=== PATIENT | female | born 1935 | race Caucasian/White ===

== ENCOUNTER 2016-10-28 14:36 | Emergency (ER) | payer MEDICARE ==
[2016-10-28 15:34] VITALS: BP 140/88
--- NOTE | 2016-11-21 17:02 | UC ---
Lower Extremity/Ankle HPI - HPI Summary HPI Summary: Patient was walking for an extended period of time yesterday developed pain inthe arch of her right foot. - History of Current Complaint Chief Complaint: UCLowerExtremity Stated Complaint: LEFT FOOT PAIN Time Seen by Provider: 10/28/16 15:58 Hx Obtained From: Patient Hx Last Menstrual Period: n/a ?: No Onset/Duration: Sudden Onset, Lasting Days Severity Initially: Mild Severity Currently: Moderate Pain Intensity: 4 Pain Scale Used: 0-10 Numeric Aggravating Factor(s): Standing, Ambulation Alleviating Factor(s): Nothing Able to Bear Weight: Yes - Risk Factors Gout Risk Factors: Negative DVT Risk Factors: Negative - Allergies/Home Medications Allergies/Adverse Reactions: Allergies Allergy/AdvReac Type Severity Reaction Status Date / Time Bee Venom Allergy Swelling Verified 10/28/16 15:21 Of Face,Lips,& Throat Penicillins Allergy Rash Verified 10/28/16 15:21 Sulfa Antibiotics Allergy Rash Verified 10/28/16 15:21 Home Medications: Home Medications Escitalopram (NF) [Lexapro (NF)] 5 mg PO DAILY 10/28/16 [History Confirmed 10/28] Ranitidine HCl [Zantac] 150 mg PO SEE INSTRUCTIONS PRN 10/28/16 [History Confirmed 10/28/16] Warfarin TAB(*) [Coumadin TAB(*)] 2.5 mg PO 1700 10/28/16 [History Confirmed ] PMH/Surg Hx/FS Hx/Imm Hx Previously Healthy: Yes Endocrine History Of: Reports: Diabetes - Taken off of meds, Thyroid Disease Cardiovascular History Of: Reports: Hypertension - Taken off of meds - Surgical History Surgical History: Yes Surgery Procedure, Year, and Place: PART OF COLON REMOVED 07/2011, HYSTERECTOMY. Colon resection with loop ileostomy 10/2014 - Family History Known Family History: Positive: Cardiac Disease, Hypertension, Diabetes - Social History Alcohol Use: None Substance Use Type: None Smoking Status (MU): Never Smoked Tobacco Review of Systems Constitutional: Negative Skin: Negative Eyes: Negative ENT: Negative Respiratory: Negative Cardiovascular: Negative Gastrointestinal: Negative Genitourinary: Negative Motor: Negative Neurovascular: Negative Musculoskeletal: Arthralgia, Decreased ROM, Myalgia Neurological: Negative Psychological: Negative All Other Systems Reviewed And Are Negative: Yes Physical Exam Triage Information Reviewed: Yes Appearance: Well-Appearing, Well-Nourished, Pain Distress Vital Signs: Initial Vital Signs Temp 98.6 F 10/28/16 15:13 Pulse 79 10/28/16 15:13 Resp 16 10/28/16 15:13 BP 140/88 10/28/16 15:13 Pulse Ox 99 10/28/16 15:13 Vital Signs Reviewed: Yes Eye Exam: Normal Eyes: Positive: Conjunctiva Clear ENT Exam: Normal ENT: Positive: Normal ENT inspection, Hearing grossly normal, Pharynx normal, TMs normal Dental Exam: Normal Neck exam: Normal Respiratory Exam: Normal Respiratory: Positive: Chest non-tender, Lungs clear, Normal breath sounds Cardiovascular Exam: Normal Cardiovascular: Positive: RRR, No Murmur, Pulses Normal, Brisk Capillary Refill Abdominal Exam: Normal Abdomen Description: Positive: Nontender, No Organomegaly, Soft Bowel Sounds: Positive: Present Musculoskeletal: Positive: Strength Intact, ROM Limited @ - pronation, Edema @ - in the arch of foot Neurological Exam: Normal Neurological: Positive: Alert, Muscle Tone Normal Psychological Exam: Normal Psychological: Positive: Age Appropriate Behavior Skin Exam: Normal Lower Extremity Course/Dx - Course Course Of Treatment: hx obtained, exam performed, ROm assessed, arches examinted , her arch is fallen, examine her shoes which she states are 5 years old, worn and no support, encouraged her to get new pair of shoes. - Differential Dx/Diagnosis Differential Diagnosis/HQI/PQRI: Cellulitis, Contusion, Dislocation, Fracture ( Closed), Sprain, Strain Provider Diagnoses: fallen arch right foot. right foot pain Discharge - Discharge Plan Condition: Stable Disposition: HOME Patient Education Materials: Arthralgia (ED) Referrals: Barbara Bermudez PA [Primary Care Provider] - Additional Instructions: Recommendations: Ice massage to arch new shoes wear your insoles rest and elevate your foot with pain. tylenol for pain
== END 2016-10-28 16:30 | disposition home or self-care (01) ==
LOC: UCCORT 14:36
DX: M21.41 Flat foot [pes planus] (acquired), right foot (principal); M79.671 Pain in right foot
CPT/HCPCS: 99212; G0463

== ENCOUNTER 2016-12-29 09:10 | Emergency (ER) | payer MEDICARE ==
--- NOTE | 2016-12-29 09:40 | UC ---
Shoulder Pain HPI - HPI Summary HPI Summary: The patient comes in today for: 1. Right shoulder/left side pain: Onset: 1 week ago. Palliative/provocative: Movement makes it worse. Quality: [place] Region: Right shoulder, left ribs. Severity: 7/10 though she appears more 4/10 Time: Comes and goes. Associated symptoms: Event: She woke up late at night and tripped on her slippers. She fell on the left side, but also "wrenched" her right shoulder. Previous treatment: She took one Tylenol (650 mg) and this helped. * - History of Current Complaint Chief Complaint: UCGeneralIllness Stated Complaint: RIGHT SHOULDER,LEFT SIDE RIB PAIN Time Seen by Provider: 12/29/16 09:32 Hx Obtained From: Patient Hx Last Menstrual Period: n/a ?: No - Allergies/Home Medications Allergies/Adverse Reactions: Allergies Allergy/AdvReac Type Severity Reaction Status Date / Time Bee Venom Allergy Swelling Verified 12/29/16 09:17 Of Face,Lips,& Throat Penicillins Allergy Rash Verified 12/29/16 09:17 Sulfa Antibiotics Allergy Rash Verified 12/29/16 09:17 Home Medications: Home Medications Warfarin TAB(*) [Coumadin TAB(*)] 3 mg PO 1700 12/29/16 [History Confirmed 12/29] PMH/Surg Hx/FS Hx/Imm Hx Previously Healthy: No - Hx. DVT in left gh 2014. 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 Denies: Ulcer, Gastrointestinal Bleed, Gall Bladder Disease, Kidney Stones, Diverticulitis, Urosepsis Neurological History Of: Denies: TIA, CVA, Dementia, Seizures, Migraine Psychological History Of: Reports: Depression Denies: Bipolar Disorder, Schizophrenia, Post Traumatic Stress Disorder Cancer History Of: Reports: Colorectal Cancer - in 2010, with an ostomy bag in place. + history of MRSA in her entestine. Denies: Lung Cancer, Breast Cancer, Prostate Cancer, Cervical Cancer Other History Of: Negative For: HIV, Hepatitis B, Hepatitis C, Anticoagulant Therapy - Surgical History Surgical History: Yes Surgery Procedure, Year, and Place: PART OF COLON REMOVED 07/2011, HYSTERECTOMY. Colon resection with loop ileostomy 10/2014 - Family History Known Family History: Positive: Cardiac Disease, Hypertension, Diabetes - Social History Occupation: Unemployed Alcohol Use: None Substance Use Type: None Smoking Status (MU): Never Smoked Tobacco Review of Systems Constitutional: Negative Skin: Negative Eyes: Negative ENT: Negative Respiratory: Negative Cardiovascular: Negative Gastrointestinal: Negative Musculoskeletal: Arthralgia, Myalgia All Other Systems Reviewed And Are Negative: Yes Physical Exam Triage Information Reviewed: Yes Appearance: Well-Appearing, No Pain Distress, Well-Nourished Vital Signs: Initial Vital Signs Temp 99.4 F 12/29/16 09:22 Pulse 92 12/29/16 09:22 Resp 16 12/29/16 09:22 BP 149/86 12/29/16 09:22 Pulse Ox 98 12/29/16 09:22 Vital Signs Reviewed: Yes Eyes: Positive: Conjunctiva Clear. Negative: Discharge ENT: Positive: Hearing grossly normal. Negative: Pharyngeal erythema, Nasal congestion, Nasal drainage, TM bulging, TM dull, TM red, Tonsillar swelling, Tonsillar exudate Dental: Negative: Gross Decay/Caries @, Dental Fracture @ Neck: Positive: Supple, Nontender, No Lymphadenopathy. Negative: Nuchal Rigidity Respiratory: Positive: Chest non-tender, Lungs clear, No respiratory distress, No accessory muscle use. Negative: Crackles, Rhonchi Cardiovascular: Positive: RRR, No Murmur Abdomen Description: Positive: Nontender, No Organomegaly, Soft. Negative: Distended, Guarding Musculoskeletal: Positive: Strength Intact, ROM Intact, Other: - She has tenderness around the coracoid process, biceps tendon, and subdeltoid bursa. There is decreased lateral and anterior abduction. Neurological: Positive: Alert, Muscle Tone Normal Psychological: Positive: Age Appropriate Behavior, Consolable Skin: Negative: rashes, breakdown Diagnostics - Radiology No standard instances Xray Interpretation: No Acute Changes Radiology Interpretation Completed By: Radiologist Shoulder Course/Dx - Differential Dx/Diagnosis Provider Diagnoses: Hypertension. Left side pain/rib injury. Right shoulder pain Discharge - Discharge Plan Condition: Stable Disposition: HOME Patient Education Materials: Shoulder Sprain (ED), Chest Wall Pain (ED) Referrals: Barbara Bermudez PA [Primary Care Provider] - 1 Week (Please see your primary care provider next week for your high blood pressure. ) Kojo Cummins MD [Medical Doctor] - Additional Instructions: Please see Dr. Cummins if you continue to have problems with your shoulder pain. You may use Tylenol as needed for pain. See your primary care provider next week to see if your blood pressure is OK and to check your INR.
[2016-12-29 10:15] VITALS: BP 149/86
--- NOTE | 2016-12-29 10:44 | RAD ---
INDICATION: Right shoulder pain one week after a fall COMPARISON: Similar right shoulder radiograph dated February 01, 2012 TECHNIQUE: 3 views of the right shoulder were obtained. FINDINGS: The adequately corticated bones are in normal alignment. Degenerative changes include mild narrowing of the glenohumeral joint and sclerotic change of the bony glenoid surface. No fracture, dislocation or focal bony abnormality is seen. IMPRESSION: MILD DEGENERATIVE CHANGES OF THE RIGHT SHOULDER WITHOUT RADIOGRAPHICALLY APPARENT FRACTURE OR DISLOCATION. If the patient's symptoms persist, follow-up imaging is recommended.
--- NOTE | 2016-12-29 10:46 | RAD ---
INDICATION: Left flank pain one week after a fall COMPARISON: None. TECHNIQUE: 3 views of the left ribs were obtained. FINDINGS: An external marker is noted overlying the left flank. No fracture or significant focal osseous abnormality is seen. No pneumothorax is apparent. IMPRESSION: NO EVIDENCE FOR FRACTURE, IF THE PATIENT'S SYMPTOMS PERSIST RECOMMEND FOLLOW-UP IMAGING.
== END 2016-12-29 11:06 | disposition home or self-care (01) ==
LOC: UCCORT 09:10
DX: S29.8XXA Other specified injuries of thorax, initial encounter (principal); W01.0XXA Fall on same level from slipping, tripping and stumbling without subsequent striking against object, initial encounter; Y93.9 Activity, unspecified; Y92.9 Unspecified place or not applicable; M25.511 Pain in right shoulder; I10 Essential (primary) hypertension; Z86.718 Personal history of other venous thrombosis and embolism; Z79.01 Long term (current) use of anticoagulants
CPT/HCPCS: 99211; G0463

== ENCOUNTER 2017-01-17 18:47 | Emergency (ER) | payer MEDICARE ==
[2017-01-17 20:50] VITALS: BP 158/85
[2017-01-17] MEDS ORDERED: Cephalexin CAP* 250 MG PO ONE ×2 (21:44→21:51)
--- NOTE | 2017-01-17 21:54 | UC ---
Complaint Female HPI - HPI Summary HPI Summary: FOUR DAYS OF URINARY FREQUENCY AND PRESSURE. HISTORY OF RENAL FAILURE THREE YEARS AGO, RECOVERED, NOT ON DIALYSIS. ON COUMADIN. 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 Hx Last Menstrual Period: n/a Onset/Duration: Gradual Onset, Lasting Days, Still Present Timing: Lasting Days Severity Initially: Mild Severity Currently: Mild Aggravating Factor(s): Urination Associated Signs And Symptoms: Negative: Fever, Back Pain, Nausea, Vomiting(# Of Episodes =) - Risk Factors Ectopic Risk Factor: Negative Ovarian Torsion Risk Factor: Negative - Allergies/Home Medications Allergies/Adverse Reactions: Allergies Allergy/AdvReac Type Severity Reaction Status Date / Time Bee Venom Allergy Swelling Verified 01/17/17 20:50 Of Face,Lips,& Throat Penicillins Allergy Rash Verified 01/17/17 20:50 Sulfa Antibiotics Allergy Rash Verified 01/17/17 20:50 PMH/Surg Hx/FS Hx/Imm Hx Previously Healthy: Yes Endocrine History Of: Reports: Diabetes - Taken off of meds, Thyroid Disease Denies: Hyperthyroidism, Hypothyroidism, Dyslipidemia Cardiovascular History Of: Reports: Hypertension - Taken off of meds Denies: Cardiac Disorders, Pacemaker/ICD, Myocardial Infarction, Congestive Heart Failure, Atrial Fibrillation, Deep Vein Thrombosis, Bleeding Disorders Respiratory History Of: Denies: COPD, Asthma, Bronchitis, Pneumonia, Pulmonary Embolism GI/ History Of: Reports: Gastroesophageal Reflux, Renal Disease - She 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 Denies: Ulcer, Gastrointestinal Bleed, Gall Bladder Disease, Kidney Stones, Diverticulitis, Urosepsis Neurological History Of: Denies: TIA, CVA, Dementia, Seizures, Migraine Psychological History Of: Reports: Depression Denies: Bipolar Disorder, Schizophrenia, Post Traumatic Stress Disorder Cancer History Of: Reports: Colorectal Cancer - in 2010, with an ostomy bag in place. + history of MRSA in her entestine. Denies: Lung Cancer, Breast Cancer, Prostate Cancer, Cervical Cancer Other History Of: Negative For: HIV, Hepatitis B, Hepatitis C, Anticoagulant Therapy - Surgical History Surgical History: Yes Surgery Procedure, Year, and Place: PART OF COLON REMOVED 07/2011, HYSTERECTOMY. Colon resection with loop ileostomy 10/2014 - Family History Known Family History: Positive: Cardiac Disease, Hypertension, Diabetes - Social History Occupation: Retired Lives: With Family Alcohol Use: None Substance Use Type: None Smoking Status (MU): Never Smoked Tobacco Review of Systems Constitutional: Negative Skin: Negative Eyes: Negative ENT: Negative Respiratory: Negative Cardiovascular: Negative Gastrointestinal: Negative Genitourinary: Frequency, Urgency Motor: Negative Neurovascular: Negative Musculoskeletal: Negative Neurological: Negative Psychological: Negative All Other Systems Reviewed And Are Negative: Yes Physical Exam Triage Information Reviewed: Yes Appearance: Well-Appearing, No Pain Distress, Well-Nourished Vital Signs: Initial Vital Signs Temp 99.0 F 01/17/17 20:44 Pulse 73 01/17/17 20:44 Resp 18 01/17/17 20:44 BP 158/85 01/17/17 20:44 Pulse Ox 98 01/17/17 20:44 Vital Signs Reviewed: Yes Eye Exam: Normal ENT Exam: Normal ENT: Positive: Normal ENT inspection, Hearing grossly normal, Pharynx normal, TMs normal Dental Exam: Normal Neck exam: Normal Neck: Positive: Supple, Nontender, No Lymphadenopathy Respiratory Exam: Normal Respiratory: Positive: Chest non-tender, Lungs clear, Normal breath sounds, No respiratory distress, No accessory muscle use Cardiovascular Exam: Normal Cardiovascular: Positive: RRR, No Murmur Abdomen Description: Positive: Nontender, No Organomegaly, Soft. Negative: CVA Tenderness (R), CVA Tenderness (L) Musculoskeletal Exam: Normal Neurological Exam: Normal Psychological Exam: Normal Psychological: Positive: Normal Response To Family Skin Exam: Normal Complaint Female Dx - Differential Dx/Diagnosis Differential Diagnosis/HQI/PQRI: Urinary Tract Infection Provider Diagnoses: URINARY TRACT INFECTION Discharge - Discharge Plan Condition: Stable Disposition: HOME Prescriptions: Cephalexin CAP* [Keflex CAP*] 250 mg PO TID #15 cap Patient Education Materials: Urinary Tract Infection in Women (ED) Referrals: Barbara Bermudez PA [Primary Care Provider] -
== END 2017-01-17 21:58 | disposition home or self-care (01) ==
LOC: UCCORT 18:47
DX: N39.0 Urinary tract infection, site not specified (principal); Z88.0 Allergy status to penicillin; Z88.2 Allergy status to sulfonamides
CPT/HCPCS: 81003; 87086; 99212; A9270-GY; G0463

== ENCOUNTER 2017-07-20 12:30 | Emergency (ER) | payer MEDICARE ==
[2017-07-20 13:19] VITALS: BP 162/100
--- NOTE | 2017-07-20 13:32 | UC ---
Complaint Female HPI - HPI Summary HPI Summary: urinary symtpoms, has not had a UTI in 6 months, but lower abdominal pain, increased frequency and urgency. - History Of Current Complaint Chief Complaint: UCGU Stated Complaint: URINARY COMPLANT Time Seen by Provider: 07/20/17 13:28 Hx Obtained From: Patient Hx Last Menstrual Period: n/a ?: No Onset/Duration: Sudden Onset, Lasting Days Timing: Constant Severity Initially: Mild Severity Currently: Moderate Character: Burning Aggravating Factor(s): Urination Associated Signs And Symptoms: Positive: Back Pain, Nausea - Allergies/Home Medications Allergies/Adverse Reactions: Allergies Allergy/AdvReac Type Severity Reaction Status Date / Time Bee Venom Allergy Swelling Verified 07/20/17 13:10 Of Face,Lips,& Throat Penicillins Allergy Rash Verified 07/20/17 13:10 Sulfa Antibiotics Allergy Rash Verified 07/20/17 13:10 PMH/Surg Hx/FS Hx/Imm Hx Previously Healthy: Yes Other History Of: Negative For: HIV, Hepatitis B, Hepatitis C, Anticoagulant Therapy - Surgical History Surgical History: Yes Surgery Procedure, Year, and Place: PART OF COLON REMOVED 07/2011, HYSTERECTOMY. Colon resection with loop ileostomy 10/2014 - Family History Known Family History: Positive: Cardiac Disease, Hypertension, Diabetes - Social History Alcohol Use: None Substance Use Type: None Smoking Status (MU): Never Smoked Tobacco - Immunization History Most Recent Influenza Vaccination: Not the Season Review of Systems Constitutional: Negative Skin: Negative Eyes: Negative ENT: Negative Respiratory: Negative Cardiovascular: Negative Gastrointestinal: Abdominal Pain Genitourinary: Dysuria, Hematuria, Frequency, Urgency Motor: Negative Neurovascular: Negative Musculoskeletal: Negative Neurological: Negative Psychological: Negative Is Patient Immunocompromised?: No All Other Systems Reviewed And Are Negative: Yes Physical Exam Triage Information Reviewed: Yes Appearance: Well-Nourished, Ill-Appearing, Pain Distress Vital Signs: Initial Vital Signs Temp 97.3 F 07/20/17 13:06 Pulse 100 07/20/17 13:06 Resp 18 07/20/17 13:06 BP 162/100 07/20/17 13:06 Pulse Ox 99 07/20/17 13:06 Vital Signs Reviewed: Yes Eye Exam: Normal ENT Exam: Normal Dental Exam: Normal Neck exam: Normal Neck: Positive: Supple, Nontender, No Lymphadenopathy Respiratory Exam: Normal Respiratory: Positive: Chest non-tender, Lungs clear, Normal breath sounds Cardiovascular Exam: Normal Cardiovascular: Positive: RRR, No Murmur, Pulses Normal Abdomen Description: Positive: Nontender, No Organomegaly, Soft, CVA Tenderness (R) - neg, CVA Tenderness (L) - neg Bowel Sounds: Positive: Present Musculoskeletal Exam: Normal Musculoskeletal: Positive: Strength Intact, ROM Intact, No Edema Neurological Exam: Normal Neurological: Positive: Alert, Muscle Tone Normal Psychological Exam: Normal Skin Exam: Normal Complaint Female Dx - Course Course Of Treatment: hx obtained, exam performed ,meds reviewed, treated for UTI - Differential Dx/Diagnosis Differential Diagnosis/HQI/PQRI: Ureteral Stone, Urinary Tract Infection Provider Diagnoses: UTI Discharge - Discharge Plan Condition: Stable Disposition: HOME Patient Education Materials: Urinary Tract Infection in Women (ED) Additional Instructions: 1. take the medication as prescribed. 2. Increase fluid intake and get plenty of rest. 3. FOllow up with Dr Kathleen office if not improving.
[2017-07-20] MEDS ORDERED: Phenazopyridine TAB* 100 MG PO ONE (13:54)
== END 2017-07-20 14:20 | disposition home or self-care (01) ==
LOC: UCCORT 12:30
DX: N39.0 Urinary tract infection, site not specified (principal); Z91.030 Bee allergy status; Z88.2 Allergy status to sulfonamides
CPT/HCPCS: 81003; 87077; 87086; 87186; 99212; A9270-GY; G0463

== ENCOUNTER 2017-10-16 18:23 | Emergency (ER) | payer MEDICARE ==
[2017-10-16 18:57] VITALS: BP 184/94
--- NOTE | 2017-10-16 19:28 | UC ---
Lower Extremity/Ankle HPI - HPI Summary HPI Summary: Pt c/o of intermittent "cold feeling" to right lower leg, medial aspect. Deneis injury or trauma. Pt reports that she shits for long periods of time during the day in one position. Has history of DVt, is on warfarin. Is in therapeutic range. Denies pain, swelling, or erythema - History of Current Complaint Chief Complaint: UCLowerExtremity Stated Complaint: RT LEG PAIN Time Seen by Provider: 10/16/17 19:10 Hx Obtained From: Patient Hx Last Menstrual Period: n/a ?: No Onset/Duration: Gradual Onset Severity Initially: Mild Severity Currently: None Aggravating Factor(s): Nothing Able to Bear Weight: Yes - Risk Factors Gout Risk Factors: Age Over 40 DVT Risk Factors: Prior DVT Septic Arthritis Risk Factor: Extremes of Age - Allergies/Home Medications Allergies/Adverse Reactions: Allergies Allergy/AdvReac Type Severity Reaction Status Date / Time Bee Venom Allergy Swelling Verified 10/16/17 18:57 Of Face,Lips,& Throat Penicillins Allergy Rash Verified 10/16/17 18:57 Sulfa Antibiotics Allergy Rash Verified 10/16/17 18:57 Home Medications: Home Medications Escitalopram Oxalate [Lexapro 10 mg] 5 mg PO DAILY 10/16/17 [History Confirmed 10/16/17] PMH/Surg Hx/FS Hx/Imm Hx Previously Healthy: Yes Cardiovascular History: Deep Vein Thrombosis Other History Of: Negative For: HIV, Hepatitis B, Hepatitis C, Anticoagulant Therapy - Surgical History Surgical History: Yes Surgery Procedure, Year, and Place: PART OF COLON REMOVED 07/2011, HYSTERECTOMY. Colon resection with loop ileostomy 10/2014 - Family History Known Family History: Positive: Cardiac Disease, Hypertension, Diabetes - Social History Occupation: Retired Lives: Alone Alcohol Use: None Substance Use Type: None Smoking Status (MU): Never Smoked Tobacco Have You Smoked in the Last Year: No - Immunization History Most Recent Influenza Vaccination: Not the 2017/2017 Season Review of Systems Constitutional: Negative Skin: Negative Eyes: Negative ENT: Negative Respiratory: Negative Cardiovascular: Negative Gastrointestinal: Negative Genitourinary: Negative Motor: Negative Neurovascular: Negative Musculoskeletal: Myalgia Neurological: Negative Psychological: Negative Is Patient Immunocompromised?: No All Other Systems Reviewed And Are Negative: Yes Physical Exam Triage Information Reviewed: Yes Appearance: Well-Appearing Vital Signs: Initial Vital Signs Temp 99.4 F 10/16/17 18:52 Pulse 76 10/16/17 18:52 Resp 15 10/16/17 18:52 BP 184/94 10/16/17 18:52 Pulse Ox 98 10/16/17 18:52 Vital Signs Reviewed: Yes Eye Exam: Normal ENT Exam: Normal Dental Exam: Normal Neck exam: Normal Respiratory Exam: Normal Cardiovascular Exam: Normal Musculoskeletal Exam: Normal Musculoskeletal: Positive: Edema @ - +<1 edema bilateral lower extremities Neurological Exam: Normal Psychological Exam: Normal Skin Exam: Normal Lower Extremity Course/Dx - Differential Dx/Diagnosis Differential Diagnosis/HQI/PQRI: DVT Provider Diagnoses: impinged nerve? right lower leg pain Discharge - Discharge Plan Condition: Stable Disposition: HOME Patient Education Materials: Leg Pain (ED) Referrals: Barbara Bermudez PA [Primary Care Provider] - If Needed Additional Instructions: Please follow up with your PCP or return to clinic as needed.
== END 2017-10-16 19:37 | disposition home or self-care (01) ==
LOC: UCCORT 18:23
DX: M79.661 Pain in right lower leg (principal); Z86.718 Personal history of other venous thrombosis and embolism; Z79.01 Long term (current) use of anticoagulants; Z90.710 Acquired absence of both cervix and uterus; Z88.0 Allergy status to penicillin; Z88.2 Allergy status to sulfonamides; Z91.030 Bee allergy status
CPT/HCPCS: 99211; G0463

== ENCOUNTER 2019-04-29 18:24 | Emergency (ER) | payer MEDICARE ==
[2019-04-29 18:43] VITALS: BP 169/82
--- NOTE | 2019-04-29 19:03 | UC ---
Upper Extremity HPI - HPI Summary HPI Summary: Per machine tank operator: "Pt reached to close a door about 30min ago and injured her right shoulder. Pt states she has arthritis in the right shoulder" -here w/ gher dtr. -felt shooting pain. mechanism was turning nack to make sure door was shut with inversion motion of shoulder. hard to lift it in any plane b/c pain. cant take nsaids bc coumadin -here w/ dtr -able to move fingers. denies numbing/tingling blue fingers - History of Current Complaint Chief Complaint: UCUpperExtremity Stated Complaint: RT SHOULDER INJURY Time Seen by Provider: 04/29/19 18:39 Hx Last Menstrual Period: n/a Pain Intensity: 8 - Allergies/Home Medications Allergies/Adverse Reactions: Allergies Allergy/AdvReac Type Severity Reaction Status Date / Time bee venom protein (honey bee) Allergy Swelling Verified 04/29/19 18:47 Of Face,Lips,& Throat Penicillins Allergy Rash Verified 04/29/19 18:47 Sulfa (Sulfonamide Allergy Rash Verified 04/29/19 18:47 Antibiotics) PMH/Surg Hx/FS Hx/Imm Hx Endocrine History: Thyroid Disease Other History Of: Negative For: HIV, Hepatitis B, Hepatitis C, Anticoagulant Therapy - Surgical History Surgical History: Yes Surgery Procedure, Year, and Place: PART OF COLON REMOVED 07/2011, HYSTERECTOMY. Colon resection with loop ileostomy 10/2014 - Family History Known Family History: Positive: Cardiac Disease, Hypertension, Diabetes - Social History Alcohol Use: None Substance Use Type: None Smoking Status (MU): Never Smoked Tobacco Have You Smoked in the Last Year: No - Immunization History Most Recent Influenza Vaccination: Not the 2016/2017 Season Review of Systems All Other Systems Reviewed And Are Negative: Yes Constitutional: Positive: Negative Skin: Positive: Negative ENT: Positive: Negative Respiratory: Positive: Negative Cardiovascular: Positive: Negative Motor: Positive: Decreased ROM, Weakness Neurovascular: Positive: Negative. Negative: Decreased Sensation, Decreased Pulses Musculoskeletal: Positive: Arthralgia, Decreased ROM. Negative: Edema Neurological: Positive: Negative. Negative: Weakness, Paresthesia, Numbness Psychological: Positive: Negative Is Patient Immunocompromised?: No Physical Exam Triage Information Reviewed: Yes Appearance: Well-Appearing, No Pain Distress, Well-Nourished - very pleasant. favoring rt arm Vital Signs: Initial Vital Signs Temp 98.0 F 04/29/19 18:38 Pulse 94 04/29/19 18:38 Resp 16 04/29/19 18:38 BP 169/82 04/29/19 18:38 Pulse Ox 96 04/29/19 18:38 Vital Signs Reviewed: Yes Respiratory Exam: Normal Cardiovascular Exam: Normal Musculoskeletal: Positive: ROM Limited @ - unable to flex, abduct or lift at all bc significant pain. fingers FROM. sesn intact,. CT brisk. +2 radial Neurological Exam: Normal Psychological Exam: Normal Skin Exam: Normal Upper Extremity Course/Dx - Course Course Of Treatment: Rt shoulder xray read by me: OA. no frx. joint spaces appear nml. pt undrestands that i am not a RAD and will be read in AM by RAD. - Differential Dx/Diagnosis Differential Diagnosis/HQI/PQRI: Fracture (Closed), Strain, Sprain Provider Diagnosis: Right shoulder pain Discharge - Sign-Out/Discharge Documenting (check all that apply): Patient Departure All imaging exams completed and their final reports reviewed: No - Discharge Plan Condition: Stable Disposition: HOME Patient Education Materials: Shoulder Pain (ED) Referrals: Barbara Bermudez PA [Primary Care Provider] - Kojo Cummins MD [Medical Doctor] - Additional Instructions: Ice, rest, Use the sling. tylenol for pain Follow up with orthopedics. the xray report will be read officially in the morning by radiologist. You should get a call if there is a discrepancy. - Billing Disposition and Condition Condition: STABLE Disposition: Home
== END 2019-04-29 19:33 | disposition home or self-care (01) ==
LOC: UCCORT 18:24
DX: M25.511 Pain in right shoulder (principal); E07.9 Disorder of thyroid, unspecified; Z88.0 Allergy status to penicillin; Z88.2 Allergy status to sulfonamides
CPT/HCPCS: 99212; G0463

== ENCOUNTER 2019-06-05 16:53 | Emergency (ER) | payer MEDICARE ==
--- OUTSIDE RECORDS SUMMARY | 2019-06-05 16:59 | XMS REPORT | Continuity of Care Document ---
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 Essential hypertension Onset: 02/13/2012 Hypothyroidism Onset: 02/13/2012 Type 2 diabetes mellitus Onset: 02/13/2012 Gastroesophageal reflux disease Onset: 02/13/2012 Malignant neoplastic disease Onset: 02/13/2012 Edema Onset: 02/13/2012 Diverticular disease of colon Onset: 02/13/2012 Constipation Onset: 02/13/2012 Gynecologic examination Onset: 02/13/2012 Contact dermatitis ROXANNE Arcos Onset: 12/21/2018 Allergic rhinitis ROXANNE Arcos Onset: 12/21/2018 Diarrhea ROXANNE Arcos Onset: 12/21/2018 Social History Type Date Description Comments Sex Unknown ETOH Use Rarely consumes alcohol Tobacco Use Reviewed: 02/04/14 Patient has never smoked 06/01/14 Recreational Drug Use Never Used Drugs Smoking Status Reviewed: 04/26/19 Patient has never smoked 06/01/14 Exercise Type/Frequency Exercises rarely Tattoo/Piercing Pierced ears Allergies, Adverse Reactions, Alerts Active Allergies Reaction Severity Comments Date Vancomycin 10/10/2018 Penicillin 10/10/2018 Sulfa Antibiotics 10/10/2018 Bee Sting 10/10/2018 Medications Active Medications SIG Qnty Indications Ordering Date Provider Amlodipine Besylate 1 by mouth every 30tabs I10 Enstor 05/21/2019 day MD Hever 10mg Tablets Vitamin A Palmitate one pill twice a 24tabs Nestor 01/07/2019 week MD Hever [id number] Tablets Vitamin C one pill daily 90caps Nestor 01/07/2019 500mg MD Hever Capsules Ondansetron HCL 1 tablet by mouth 14tabs R11.0 Nestor 09/17/2018 4mg every 8 hours as MD Hever Tablets needed for nausea Synthroid 1 by mouth every 90tabs Nestor 02/12/2018 112mcg day MD Hever Tablets Coumadin Use as Directed 30tabs Nestor 09/12/2016 3mg Tablets Per PT/Inr MD Hever Results Coumadin Use as Directed 30tabs Nestor 08/30/2015 2.5mg Tablets Per PT/Inr MD Hever Results Escitalopram Oxalate Take 1 Tablet By 30tabs F43.21 Netsor 05/18/2015 Mouth Daily MD Hever 5mg Tablets Ursodiol Take 1 Capsule By 60caps Nestor 03/09/2015 300mg Capsules Mouth Twice Daily MD Hever Sodium Bicarbonate Take 2 Tablets By 120tabs Nestor 01/13/2015 Mouth Twice Daily MD Hever 650mg Tablets Omeprazole 1 by mouth every 90tabs Nestor 12/23/2014 20mg Tablets day MD DR Tino Kathleen CPT Code Status Date Vaccine Lot # [id number] Given 09/17/2018 Tdap - Tetanus/Diptheria/Acellular Pertussis 91660 Given 06/19/2018 Fluzone High Dose 21867 Given 08/09/2017 Fluzone High Dose 14829 Given 06/17/2016 Influenza Virus Vaccine, Quadrivalent, Split, Preservative Free 19315 Given 06/20/2015 Pneumococcal Conjugate Vaccine 13 Valent For Intramuscular Use 25533 Given 06/20/2015 Fluzone High Dose 19575 Given 06/03/2014 Fluzone High Dose 09801 Given 07/02/2013 Fluzone High Dose 44343 Given 07/22/2012 Fluzone High Dose 15661 Given 07/17/2010 Pneumonia Vaccine 17709 Given 07/17/2010 Influenza Virus 3Yrs & Over 97893 Given 07/26/2009 Pneumonia Vaccine 77744 Given 08/13/2006 Influenza Virus 3Yrs & Over 50763 Given 04/04/2005 Tetanus And Diptheria (Td) For Adult Use Preservative Free 61296 Given 07/22/2003 Influenza Virus 3Yrs & Over 47640 Given 08/13/2002 Influenza Virus 3Yrs & Over Vital Signs Date Vital Result Comment 05/21/2019 3:00pm Weight 196.44 lb BP Systolic Sitting 160 mmHg BP Diastolic Sitting 80 mmHg 04/21/2019 3:29pm Weight 193.38 lb BP Systolic Sitting 180 mmHg BP Diastolic Sitting 90 mmHg Results Description No Information Available Procedures Date Code Description Status 10/03/2018 47634883 Mammogram Completed 05/13/2013 [id number] Colonoscopy Completed Medical Devices Description No Information Available Encounters Type Date Location Provider Dx Diagnosis Office Visit 04/21/2019 [facility] ROXANNE Arcos I10 Essential ( primary) 3:30p hypertension N18.9 Chronic kidney disease, unspecified R73.9 Hyperglycemia, unspecified Z93.2 Ileostomy status Office Visit 03/19/2019 4:00p [facility] ROXANNE Arcos I10 Essential (primary) hypertension M19.90 Unspecified osteoarthritis, unspecified site N18.9 Chronic kidney disease, unspecified R73.9 Hyperglycemia, unspecified E03.9 Hypothyroidism, unspecified K21.9 Gastro-esophageal reflux disease without esophagitis Office Visit 12/18/2018 4:00p [facility] ROXANNE Arcos I10 Essential (primary) hypertension M19.90 Unspecified osteoarthritis, unspecified site L30.9 Dermatitis, unspecified N18.9 Chronic kidney disease, unspecified R73.9 Hyperglycemia, unspecified R19.7 Diarrhea, unspecified Assessments Date Code Description Provider 05/21/2019 I10 Essential (primary) hypertension ROXANNE Arcos 05/21/2019 R11.0 Nausea ROXANNE Arcos 05/21/2019 R60.0 Localized edema ROXANNE Arcos 05/21/2019 N18.9 Chronic kidney disease, unspecified ROXANNE Arcos 04/21/2019 I10 Essential (primary) hypertension ROXANNE Arcos 04/21/2019 N18.9 Chronic kidney disease, unspecified ROXANNE Arcos 04/21/2019 R73.9 Hyperglycemia, unspecified ROXANNE Arcos 04/21/2019 Z93.2 Ileostomy status ROXANNE Arcos 03/19/2019 I10 Essential (primary) hypertension ROXANNE Arcos 03/19/2019 M19.90 Unspecified osteoarthritis, unspecified site ROXANNE Arcos 03/19/2019 N18.9 Chronic kidney disease, unspecified ROXANNE Arcos 03/19/2019 R73.9 Hyperglycemia, unspecified ROXANNE Arcos 03/19/2019 E03.9 Hypothyroidism, unspecified ROXANNE Arcos 03/19/2019 K21.9 Gastro-esophageal reflux disease without esophagitis ROXANNE Arcos 12/18/2018 I10 Essential (primary) hypertension ROXANNE Arcos 12/18/2018 M19.90 Unspecified osteoarthritis, unspecified site ROXANNE Arcos 12/18/2018 L30.9 Dermatitis, unspecified ROXANNE Arcos 12/18/2018 N18.9 Chronic kidney disease, unspecified ROXANNE Arcos 12/18/2018 R73.9 Hyperglycemia, unspecified ROXANNE Arcos 12/18/2018 R19.7 Diarrhea, unspecified ROXANNE Arcos Plan of Treatment Future Appointment(s):06/18/2019 4:00 pm - ORXANNE Arcos at [facility] - BRITTNEY Arcos Essential (primary) hypertensionNew Medication: Amlodipine Besylate 10 mg - 1 by mouth every dayFollow up:one gtzmlF78.0 UgaluzM99.0 Localized nhozkV26.9 Chronic kidney disease, unspecified Functional Status Functional Condition Comment Date Status Bifocal glasses Active Complete lower and upper and lower dentures Active Mental Status Description No Information Available Referrals Description No Information Available
[2019-06-05 17:23] VITALS: BP 160/90
--- NOTE | 2019-06-05 17:43 | UC ---
Complaint Female HPI - HPI Summary HPI Summary: Per correctional medicine physician: "Pt states she has had urgency with urination for one week. Pt has a ileostomy bag" -here w/ her dtr -she is confident that she has a UTI bc pressure. has had UAs that did not look infected nd came back w an infection per her dtr. -takes warfarin managed by PCP. -no f/c. nop n/v -has CKD that was worsened by an abx she was given in past for UTI (suspect bactrim). -PCN allergy. doesnt recall what abx she can take w/o an issue. -[place] [facility] [place] 2.7 - History Of Current Complaint Chief Complaint: UCGU Stated Complaint: URINARY COMPLAINT Time Seen by Provider: 06/05/19 17:42 Hx Last Menstrual Period: n/a Pain Intensity: 0 - Allergies/Home Medications Allergies/Adverse Reactions: Allergies Allergy/AdvReac Type Severity Reaction Status Date / Time bee venom protein (honey bee) Allergy Swelling Verified 06/05/19 17:24 Of Face,Lips,& Throat Penicillins Allergy Rash Verified 06/05/19 17:24 Sulfa (Sulfonamide Allergy Rash Verified 06/05/19 17:24 Antibiotics) Home Medications: Home Medications Amlodipine Besylate [Norvasc] 5 mg PO DAILY 06/05/19 [History Confirmed 06/05/19 ] Ferrous Gluconate [Iron] 240 mg PO 06/05/19 [History] Ondansetron [Zuplenz] 4 mg PO Q8HR PRN 06/05/19 [History Confirmed 06/05/19] PMH/Surg Hx/FS Hx/Imm Hx Previously Healthy: Yes Endocrine History: Hypothyroidism Cardiovascular History: Hypertension GI/ History: Other - CKD, ileostomy Other History Of: Negative For: HIV, Hepatitis B, Hepatitis C, Anticoagulant Therapy - Surgical History Surgical History: Yes Surgery Procedure, Year, and Place: PART OF COLON REMOVED 07/2011, HYSTERECTOMY. Colon resection with loop ileostomy 10/2014 - Family History Known Family History: Positive: Cardiac Disease, Hypertension, Diabetes - Social History Alcohol Use: None Substance Use Type: None Smoking Status (MU): Never Smoked Tobacco Have You Smoked in the Last Year: No - Immunization History Most Recent Influenza Vaccination: Not the 2016/2017 Season Review of Systems All Other Systems Reviewed And Are Negative: Yes Constitutional: Positive: Negative Skin: Positive: Negative Eyes: Positive: Negative ENT: Positive: Negative Respiratory: Positive: Negative. Negative: Shortness Of Breath Cardiovascular: Positive: Negative Gastrointestinal: Positive: Negative Genitourinary: Positive: Frequency. Negative: Hematuria Motor: Positive: Negative Neurovascular: Positive: Negative Musculoskeletal: Positive: Negative Neurological: Positive: Negative Psychological: Positive: Negative Is Patient Immunocompromised?: No Physical Exam Triage Information Reviewed: Yes Appearance: Well-Appearing, No Pain Distress, Well-Nourished Vital Signs: Initial Vital Signs Temp 97.6 F 06/05/19 17:14 Pulse 90 06/05/19 17:14 Resp 16 06/05/19 17:14 BP 160/90 06/05/19 17:14 Pulse Ox 98 06/05/19 17:14 Eye Exam: Normal ENT Exam: Normal ENT: Positive: Pharynx normal Neck exam: Normal Neck: Positive: Supple, Nontender, No Lymphadenopathy Respiratory Exam: Normal Respiratory: Positive: Lungs clear, Normal breath sounds, No respiratory distress, No accessory muscle use. Negative: Crackles, Rhonchi, Stridor, Wheezing Cardiovascular Exam: Normal Cardiovascular: Positive: RRR Abdominal Exam: Normal Abdomen Description: Positive: Nontender, Soft. Negative: CVA Tenderness (R), CVA Tenderness (L), Distended, Guarding Bowel Sounds: Positive: Present Musculoskeletal Exam: Normal Neurological Exam: Normal Psychological Exam: Normal Skin Exam: Normal Complaint Female Dx - Course Course Of Treatment: UA + 2 protein, + 1 LE> nitrite neg. + 1 ketones -she has mild sx. gh/o CKD w/ multiple drug allegies with now recent cr or cr clearance available for optimal safe dosing of abx. UA is not convincing of a UTI. we takled about options. they agree w/ awaiting cx and renal function before treatment w/ an abx that could potentially cause harm. understand to go to ER w/ any worsening systemic sx. they are reliable. - Differential Dx/Diagnosis Differential Diagnosis/HQI/PQRI: Urinary Tract Infection, Other - dysuria. CKD Provider Diagnosis: Urinary frequency, Chronic kidney disease (CKD) Discharge ED - Sign-Out/Discharge Documenting (check all that apply): Patient Departure All imaging exams completed and their final reports reviewed: No Studies - Discharge Plan Condition: Stable Disposition: HOME Patient Education Materials: Dysuria (ED) Referrals: Barbara Bermudez PA [Primary Care Provider] - 4 Days Additional Instructions: -We discussed the following plan: I am going to await the urine culture to be certain that you truly have a UTI. ANtibiotic sensitivity will be checked if there is an infection. Complicating factor is the kidney disease. We don't know what your kidney function is at this time. Last check on the [employer] system was 2.7 in 2016. It could be much worse now and we need that value to help guide antibiotic dosing to be safe for your kidneys. If you do not hear back from us by noon on 06/07/19, please call us for results and further plan. -If your symptoms worsen or you develop fevers/chills/ low back pain/confusion/ fatigue, please go to the ER. -You should also let your PCP know about the antibiotic to help guide warfarin dosing/management - Billing Disposition and Condition Condition: STABLE Disposition: Home
[2019-06-06 14:43] LABS: CO2 Carbon Dioxide 23 mmol/L (22-32); Calcium 9.4 mg/dL (8.6-10.3); Chloride 106 mmol/L (101-111); Sodium 139 mmol/L (135-145)
[2019-06-06 14:49] LABS: BUN/Creatinine Ratio 12.6 (8-20); Blood Urea Nitrogen 19 mg/dL (6-24); EGFR African American 39.7 (>60); EGFR Non-African American 32.8 (>60); Glucose 103 mg/dL (70-100)
[2019-06-06 17:18] LABS: Anion Gap 10 mmol/L (2-11)
--- NOTE | 2019-06-07 11:34 | UC ---
- Progress Note Progress Note: Please call re positive UTI, Enterococcus, but we do not have. the sensitivities yet. It is likely sensitive to cephalexin, which she could begin today OR she could wait for sensitivity. There is a small risk of allergy to cephalexin given her pcn allergy (about 5% risk). Cephalexin is also safe to use with kidney impairment. Course/Dx - Diagnoses Provider Diagnoses: Urinary frequency, Chronic kidney disease (CKD) Discharge ED - Sign-Out/Discharge Documenting (check all that apply): Patient Departure All imaging exams completed and their final reports reviewed: No Studies - Discharge Plan Condition: Stable Disposition: HOME Patient Education Materials: Dysuria (ED) Referrals: Barbara Bermudez PA [Primary Care Provider] - 4 Days Additional Instructions: -We discussed the following plan: I am going to await the urine culture to be certain that you truly have a UTI. ANtibiotic sensitivity will be checked if there is an infection. Complicating factor is the kidney disease. We don't know what your kidney function is at this time. Last check on the [employer] system was 2.7 in 2016. It could be much worse now and we need that value to help guide antibiotic dosing to be safe for your kidneys. If you do not hear back from us by noon on 06/07/19, please call us for results and further plan. -If your symptoms worsen or you develop fevers/chills/ low back pain/confusion/ fatigue, please go to the ER. -You should also let your PCP know about the antibiotic to help guide warfarin dosing/management - Billing Disposition and Condition Condition: STABLE Disposition: Home
--- NOTE | 2019-06-08 18:49 | UC ---
- Progress Note Progress Note: Urine Cx from 06/05/19 comes back >100k Enterococcus faecalis. I sent in an Rx for Keflex. Nursing to call patient of the results and Rx. If the patient has worsened, she should go to the Emergency Department. Course/Dx - Diagnoses Provider Diagnoses: Urinary frequency, Chronic kidney disease (CKD) Discharge ED - Sign-Out/Discharge Documenting (check all that apply): Patient Departure All imaging exams completed and their final reports reviewed: No Studies - Discharge Plan Condition: Stable Disposition: HOME Prescriptions: Cephalexin CAP* [Keflex CAP*] 500 mg PO TID #21 cap Patient Education Materials: Dysuria (ED) Referrals: Barbara Bermudez PA [Primary Care Provider] - 4 Days Additional Instructions: -We discussed the following plan: I am going to await the urine culture to be certain that you truly have a UTI. ANtibiotic sensitivity will be checked if there is an infection. Complicating factor is the kidney disease. We don't know what your kidney function is at this time. Last check on the [employer] system was 2.7 in 2016. It could be much worse now and we need that value to help guide antibiotic dosing to be safe for your kidneys. If you do not hear back from us by noon on 06/07/19, please call us for results and further plan. -If your symptoms worsen or you develop fevers/chills/ low back pain/confusion/ fatigue, please go to the ER. -You should also let your PCP know about the antibiotic to help guide warfarin dosing/management - Billing Disposition and Condition Condition: STABLE Disposition: Home
== END 2019-06-05 18:42 | disposition home or self-care (01) ==
LOC: UCCORT 16:53
DX: N39.0 Urinary tract infection, site not specified (principal); B95.2 Enterococcus as the cause of diseases classified elsewhere; I12.9 Hypertensive chronic kidney disease with stage 1 through stage 4 chronic kidney disease, or unspecified chronic kidney disease; Z88.0 Allergy status to penicillin; N18.9 Chronic kidney disease, unspecified; Z79.01 Long term (current) use of anticoagulants; Z93.2 Ileostomy status; Z88.2 Allergy status to sulfonamides
CPT/HCPCS: 36415; 80048; 81003; 87077; 87086; 87186; 99211; G0463

== ENCOUNTER 2019-10-12 14:59 | Emergency (ER) | payer MEDICARE ==
[2019-10-12 15:23] VITALS: BP 151/77
--- NOTE | 2019-10-12 15:26 | UC ---
Complaint Female HPI - HPI Summary HPI Summary: 83-year-old female who was attempting to get out of her recliner on Saturday when she felt pain in her lower back. Since then it moved to the right lower back and has moved to the left lower back. She denies any urinary symptoms. Denies any burning on urination or frequency. She has no history of urinary tract infections. She states her back feels much better today than it did on Saturday. - History Of Current Complaint Chief Complaint: UCBackPain Stated Complaint: BACK PAIN Time Seen by Provider: 10/12/19 15:26 Hx Obtained From: Patient Hx Last Menstrual Period: n/a ?: No Onset/Duration: Gradual Onset Timing: Intermittent Severity Initially: Mild Severity Currently: Mild Pain Intensity: 6 Character: Sharp Aggravating Factor(s): Movement Alleviating Factor(s): Position Associated Signs And Symptoms: Positive: Negative - Allergies/Home Medications Allergies/Adverse Reactions: Allergies Allergy/AdvReac Type Severity Reaction Status Date / Time bee venom protein (honey bee) Allergy Swelling Verified 10/12/19 15:14 Of Face,Lips,& Throat Penicillins Allergy Rash Verified 10/12/19 15:14 Sulfa (Sulfonamide Allergy Rash Verified 10/12/19 15:14 Antibiotics) PMH/Surg Hx/FS Hx/Imm Hx Previously Healthy: Yes Endocrine History: Diabetes, Thyroid Disease Cardiovascular History: Hypertension Psychological History: Depression Other History Of: Negative For: HIV, Hepatitis B, Hepatitis C, Anticoagulant Therapy - Surgical History Surgical History: Yes Surgery Procedure, Year, and Place: hysterectomy. colon resection with loop ileostomy 10/2014 - Family History Known Family History: Positive: Cardiac Disease, Hypertension, Diabetes - Social History Occupation: Retired Alcohol Use: None Substance Use Type: None Smoking Status (MU): Never Smoked Tobacco Have You Smoked in the Last Year: No - Immunization History Most Recent Influenza Vaccination: Not the 2017/2017 Season Review of Systems All Other Systems Reviewed And Are Negative: Yes Genitourinary: Negative: Dysuria, Hematuria, Frequency, Urgency Musculoskeletal: Positive: Other: - Patient states when she first got out of her chair on Saturday she had low back pain which has moved to the right lower back and then to the left lower back then she states "it moves all over the place". Is Patient Immunocompromised?: No Physical Exam Triage Information Reviewed: Yes Appearance: Well-Appearing, No Pain Distress, Well-Nourished Vital Signs: Initial Vital Signs Temp 99.2 F 10/12/19 15:16 Pulse 87 10/12/19 15:16 Resp 14 10/12/19 15:16 BP 151/77 10/12/19 15:16 Pulse Ox 95 10/12/19 15:16 Vital Signs Reviewed: Yes Respiratory: Positive: Lungs clear, Normal breath sounds, No respiratory distress, No accessory muscle use Cardiovascular: Positive: RRR, No Murmur, Pulses Normal, Brisk Capillary Refill Abdomen Description: Positive: Nontender, Soft, Other: - Patient has an ostomy bag in place which is functioning normally.. Negative: CVA Tenderness (R), CVA Tenderness (L), Distended, Guarding Bowel Sounds: Positive: Present Musculoskeletal: Positive: Strength Intact, ROM Intact, Other: - Spine is nontender, there is no bruising, erythema, deformity or swelling. There is no specific area of back tenderness, no CVA tenderness. Neurological Exam: Normal Psychological Exam: Normal Skin Exam: Normal Complaint Female Dx - Course Course Of Treatment: The urinalysis was positive for leukocytes however because of the lack of urinary symptoms I am going to wait and send this for urine culture. The patient and her granddaughter, who is with her, are agreeable to this plan of action. She can apply heat to the sore area and take Tylenol for pain. Increase fluids. Follow-up with primary care provider if continued back pain without improvement over the next week. - Differential Dx/Diagnosis Provider Diagnosis: Low back strain Discharge ED - Sign-Out/Discharge Documenting (check all that apply): Patient Departure All imaging exams completed and their final reports reviewed: No Studies - Discharge Plan Condition: Good Disposition: HOME Patient Education Materials: Muscle Strain (DC) Referrals: Barbara Bermudez PA [Primary Care Provider] - Additional Instructions: Heating pad or warm moist compresses to the sore area, Tylenol for pain. Follow -up with your primary care provider in 3 days as already scheduled. We will call you if the culture report comes back positive for a urinary tract infection. - Billing Disposition and Condition Condition: GOOD Disposition: Home
--- NOTE | 2019-10-15 07:00 | UC ---
- Progress Note Progress Note: urine no growth no change rubi Course/Dx - Diagnoses Provider Diagnoses: Low back strain Discharge ED - Sign-Out/Discharge Documenting (check all that apply): Post-Discharge Follow Up All imaging exams completed and their final reports reviewed: No Studies - Discharge Plan Condition: Good Disposition: HOME Patient Education Materials: Muscle Strain (DC) Referrals: Barbara Bermudez PA [Primary Care Provider] - Additional Instructions: Heating pad or warm moist compresses to the sore area, Tylenol for pain. Follow -up with your primary care provider in 3 days as already scheduled. We will call you if the culture report comes back positive for a urinary tract infection. - Billing Disposition and Condition Condition: GOOD Disposition: Home
== END 2019-10-12 15:54 | disposition home or self-care (01) ==
LOC: UCCORT 14:59
DX: S39.012A Strain of muscle, fascia and tendon of lower back, initial encounter (principal); E11.9 Type 2 diabetes mellitus without complications; I10 Essential (primary) hypertension; Z88.0 Allergy status to penicillin; Z88.2 Allergy status to sulfonamides; Z91.030 Bee allergy status; X58.XXXA Exposure to other specified factors, initial encounter; Y92.9 Unspecified place or not applicable
CPT/HCPCS: 81003; 87086; 99211; G0463